=== PATIENT | female | born 1995 | race Caucasian/White ===

== ENCOUNTER 2018-06-06 01:42 | Emergency (ER) | payer OTHER ==
[~2018-06-06] VITALS: Ht 160 cm; Wt 62.1 kg
[2018-06-06 01:51] VITALS: BP 123/86; Ht 160 cm; Wt 62.1 kg
== END 2018-06-06 03:43 | disposition home or self-care (01) ==
LOC: ED 01:42
DX: S93.601A Unspecified sprain of right foot, initial encounter (principal); Z98.890 Other specified postprocedural states; W11.XXXA Fall on and from ladder, initial encounter; Y93.89 Activity, other specified; Y92.89 Other specified places as the place of occurrence of the external cause; Y99.8 Other external cause status